=== PATIENT | female | born 1940 | race Caucasian/White ===

== ENCOUNTER 2016-08-12 20:02 | Observation (INO) | payer OTHER ==
[~2016-08-12] VITALS: Ht 160 cm; Wt 68.4 kg
[2016-08-12 20:20] LABS: HEMATOCRIT 39.3 % (36.0-46.0); MCH 29.9 PG (29.0-34.0); MCHC 33.3 G/DL (30.0-36.0); MCV 89.7 FL (83-99); MEAN PLAT.VOLUME 9.1 uM^3 (9.5-12.4); PLATELET COUNT 407 K/uL (156-360); RBC DIS.WIDTH-CV 13.4 % (11.8-14.6); RED BLOOD COUNT 4.38 M/uL (3.80-5.20)
[2016-08-12 20:31] LABS: CHLORIDE 101 mEq/L (99-109); POTASSIUM 3.7 mEq/L (3.7-5.4); SODIUM 136 mEq/L (136-147)
[2016-08-12 20:33] LABS: GLUCOSE 115 mg/dL (70-99)
[2016-08-12 20:34] LABS: ANION GAP 9 MEQ/L (2-14)
[2016-08-12 20:37] LABS: GFR ESTIMATE (CALCULATED) > 59 mL/min/
[2016-08-12 20:38] LABS: UREA NITROGEN (BUN) 15 mg/dL (9-23)
[2016-08-12 20:56] LABS: LIPASE 22 U/L (1.0-51.0)
[2016-08-12 21:01] LABS: TROP-I INTERPRETATION NEGATIVE; TROPONIN-I < 0.01 ng/mL (0.0-0.30)
[2016-08-13 01:31] VITALS: BP 177/77
[2016-08-13 02:23] LABS: HDL CHOLESTEROL 59 MG/DL (Desirable>=50); LDL CHOLESTEROL 171 mg/dL (Desirable<100); NON-HDL CHOLESTEROL 200 mg/dL (Desirable<160); TOTAL CHOLESTEROL 259 mg/dL (Desirable<200); TRIGLYCERIDES 147 MG/DL (Normal: <150)
[2016-08-13 05:00] VITALS: BP 173/80
[2016-08-13 06:52] LABS: Estimated Average Glucose 131 mg/dL (70-123); HEMOGLOBIN A1c (GLYCOHEMOGLOB) 6.2 % HGB (Below 5.7)
[2016-08-13 08:36] VITALS: BP 189/80
[2016-08-13 12:36] VITALS: BP 202/101
[2016-08-13 12:40] VITALS: BP 202/90
[2016-08-13 16:33] VITALS: BP 216/100
[2016-08-13] MEDS ORDERED: APRESOLINE10 MG PO (17:02)
[2016-08-13] MEDS ORDERED: PRAVASTATIN SOD40 MG PO (17:02)
[2016-08-13] MEDS ORDERED: AMLODIPINE BESY10 MG PO (17:02)
[2016-08-13] MEDS ORDERED: ASPIRIN EC325 MG PO (17:02)
== END 2016-08-13 17:12 | disposition left against medical advice (07) ==
LOC: EME 20:02 → EDOF 08-13 00:05 → 5WEST 08-13 01:06
DX: G45.9 Transient cerebral ischemic attack, unspecified (principal); I16.0 Hypertensive urgency; D49.7 Neoplasm of unspecified behavior of endocrine glands and other parts of nervous system; E07.9 Disorder of thyroid, unspecified
CPT/HCPCS: 70450; 70553; 71020; 80048; 80061; 83036; 83690; 84484; 85027; 93005; 93880; 99281; 99285; G0378